=== PATIENT | female | born 1990 | race African-American/Black ===

== ENCOUNTER 2018-12-31 14:19 | Outpatient (CLI) | payer OTHER ==
[2018-12-31 14:44] VITALS: BP 100/50
--- NOTE | 2018-12-31 15:44 | PROCEDURE REPORT ---
- HPI Diagnosis/Indication for NST: Other (Possible rupture of membranes) Vital Signs Temperature 36.6 C 12/31/18 14:37 Heart Rate 78 12/31/18 14:37 Respiratory Rate 16 12/31/18 14:37 Blood Pressure 100/50 L 12/31/18 14:37 Temperature 36.6 C 12/31/18 14:37 Heart Rate 78 12/31/18 14:37 Respiratory Rate 16 12/31/18 14:37 Blood Pressure 100/50 L 12/31/18 14:37 O2 Saturation - Results and Plan Findings/Impression: No contractions are noted on the monitor strip. There is a category 1 strip noted. There is good reactivity. Impression: Intrauterine at 39 weeks 2 days gestation Plan: The patient will be discharged to home. 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
--- NOTE | 2018-12-31 15:48 | PROVIDER PROGRESS NOTE ---
- HPI Chief Complaint: Leakage of vaginal fluid Current : Vital Signs Temperature 36.6 C 12/31/18 14:37 Heart Rate 78 12/31/18 14:37 Respiratory Rate 16 12/31/18 14:37 Blood Pressure 100/50 L 12/31/18 14:37 Temperature 36.6 C 12/31/18 14:37 Heart Rate 78 12/31/18 14:37 Respiratory Rate 16 12/31/18 14:37 Blood Pressure 100/50 L 12/31/18 14:37 O2 Saturation The patient is a well-developed, well-nourished, 28-year-old female who is 2 para 1-0-0-1 with EDC of 01/05/2019 making her approximately 39 weeks and 2 days gestation.She is a patient at the [facility] and [place]. She came to our department after their hospital was placed on divert. She thought she might have experienced some leakage of fluid. She does not know what it looked like. She does not remember any colors. She denies any contractions. She denies any vaginal bleeding. She did notes good movement.She further relates that there is been no problems in her thus far.She is GBS positive. - Exam Lungs: Lungs were clear to auscultation bilaterally. Heart: Heart had a regular rate and rhythm without murmur, S3-S4 gallop rhythms, clicks or rubs. Abdomen: The abdomen is soft, pliable and nontender. The uterus is soft and nontender. Good movement is appreciated. No contractions are appreciated. Uterus is gravid. Pelvic: The cervix has an external loss is open to 3 cm it is possibly 50% effaced the inner office however is open less than a centimeter. I could not push through to the head. The fetus is cephalic and at a -3 station. It sits very high but is engaged. No fluid was noted in the vagina on Valsalva maneuver. No vaginal bleeding is appreciated. The vaginal mucosa is pink and moist. There was a large amount of mucus in the vaginal vault. Fern test was negative for ferning. Nitrazine test was negative. - Procedures OB Procedure Performed: NST (Reactive NSTNo contractions noted) Diagnosis/Indication for NST: Other (Possible rupture of membranes) NST Procedure: No decelerations are noted. There is good reactivity. Service Date of procedure: 12/31/18 Findings: Reactive NST - Plan Plan: Impression: Intrauterine at 39 weeks 2 days gestation, Intact membranes Plan: The patient is going to be allowed to be discharged home.She will follow- up with her regular OB provider at her visit of next week. If she experiences any other signs of labor she will return to an OB department for evaluation.
== END 2018-12-31 15:38 | disposition home or self-care (01) ==
LOC: WFO 14:19 → FBP 14:21 → WFO 15:38
PROVIDERS: ATTEND Obstetrics & Gynecology
DX: Z34.83 Encounter for supervision of other normal pregnancy, third trimester (principal)
CPT/HCPCS: 99213

== ENCOUNTER 2019-11-02 18:46 | Emergency (ER) | payer OTHER ==
--- NOTE | 2019-11-02 20:34 | ED Physician Documentation ---
PD HPI PED ILLNESS - Stated complaint Stated Complaint: CP, FLU LIKE SX - Chief complaint Chief Complaint: General - History obtained from History obtained from: Patient (Pt presents with several days of feeling fatigued, achy, headache, chest discomfort--soreness in the sternum and between the shoulder blades. She feels worn out. Has nasal congestion. Feels chilled but no fever. No cough or dyspnea, no gi/gu sx. Tolerating po well. Drinking a lot of water but still feeling thirsty. [place]id [place] and results today were negative. No known sick contacts. Taking theraflu occasionally without relief. No other meds. Is breast feeding.) Review of Systems Constitutional: reports: Chills, Myalgias, Fatigue Nose: reports: Rhinorrhea / runny nose, Congestion. denies: Sinus pressure / pain Throat: reports: Reviewed and negative Cardiac: reports: Chest pain / pressure. denies: Palpitations, Pedal edema, Calf pain Respiratory: reports: Hemoptysis, Wheezing. denies: Dyspnea, Cough GI: denies: Abdominal Pain, Abdominal Swelling, Nausea, Vomiting, Constipation, Diarrhea, Hematemesis, Bloody / black stool : reports: Reviewed and negative Skin: reports: Reviewed and negative Musculoskeletal: reports: Neck pain, Back pain, Extremity pain. denies: Joint pain, Extremity swelling, Joint swelling, Pain with weight bearing Neurologic: reports: Generalized weakness, Headache. denies: Focal weakness, Numbness, Difficulty speaking, Near syncope, Syncope, Seizure, Confused, Altered mental status, Unresponsive, Head injury, LOC Endocrine: reports: Polydypsia. denies: Polyuria, Polyphagia PD PAST MEDICAL HISTORY - Past Medical History Past Medical History: Yes GI: Other Other Past Medical History: IBS - Past Surgical History Past Surgical History: No - Allergies Allergies/Adverse Reactions: Allergies Allergy/AdvReac Type Severity Reaction Status Date / Time No Known Drug Allergies Allergy Verified 11/02/19 18:57 - Social History Does the pt smoke?: No Smoking Status: Never smoker Does the pt drink ETOH?: No Does the pt have substance abuse?: No - Immunizations Immunizations are current?: Yes - POLST Patient has POLST: No PD ED PE NORMAL - Vitals Vital signs reviewed: Yes - General General: Alert and oriented X 3, No acute distress, Well developed/nourished - HEENT HEENT: Atraumatic, PERRL, EOMI, Ears normal, Moist mucous membranes, Pharynx benign - Neck Neck: Supple, no meningeal sign, No bony TTP, No JVD - Cardiac Cardiac: RRR, No murmur, No gallop, No rub, Other (sternal and anterior chest wall ttp) - Respiratory Respiratory: No respiratory distress, Clear bilaterally - Abdomen Abdomen: Normal bowel sounds, Soft, Non tender, Non distended - Derm Derm: Normal color, Warm and dry, No rash - Extremities Extremities: No deformity, No tenderness to palpate, Normal ROM s pain, No edema, No calf tenderness / cord - Neuro Neuro: Alert and oriented X 3 Eye Opening: Spontaneous Motor: Obeys Commands Verbal: Oriented GCS Score: 15 - Psych Psych: Normal mood, Normal affect Results - Vitals Vitals: Vital Signs - 24 hr 11/02/19 11/02/19 11/02/19 18:57 19:21 20:32 Temperature 36.8 C Heart Rate 64 66 68 Respiratory 16 18 15 Rate Blood Pressure 105/84 H 123/74 118/66 O2 Saturation 98 98 98 11/02/19 21:09 Temperature Heart Rate 67 Respiratory 16 Rate Blood Pressure 120/73 O2 Saturation 99 Oxygen O2 Source Room air - Labs Labs: Laboratory Tests 11/02/19 11/02/19 11/02/19 20:42 20:42 20:42 WBC 6.6 RBC 4.54 Hgb 12.8 Hct 39.6 MCV 87.2 MCH 28.2 MCHC 32.3 RDW 13.6 Plt Count 246 MPV 9.9 Neut # (Auto) 3.4 Lymph # (Auto) 2.6 Yates # (Auto) 0.5 Eos # (Auto) 0.1 Baso # (Auto) 0.0 Absolute Nucleated RBC 0.00 Nucleated RBC % 0.0 Sodium 140 Potassium 3.5 Chloride 107 Carbon Dioxide 26 Anion Gap 7.0 BUN 23 H Creatinine 0.9 Estimated GFR (MDRD) 89 Glucose 88 Calcium 8.8 Troponin I High Sens < 2.3 L Urine Color Urine Clarity Urine pH Ur Specific [place] Urine Protein Urine Glucose (UA) Urine Ketones Urine Occult Blood Urine Nitrite Urine Bilirubin Urine Urobilinogen Ur Leukocyte Esterase Ur Microscopic Review Urine Culture Comments Urine HCG, Qual 11/02/19 20:47 WBC RBC Hgb Hct MCV MCH MCHC RDW Plt Count MPV Neut # (Auto) Lymph # (Auto) Yates # (Auto) Eos # (Auto) Baso # (Auto) Absolute Nucleated RBC Nucleated RBC % Sodium Potassium Chloride Carbon Dioxide Anion Gap BUN Creatinine Estimated GFR (MDRD) Glucose Calcium Troponin I High Sens Urine Color YELLOW Urine Clarity CLEAR Urine pH 6.5 Ur Specific [place] 1.015 Urine Protein NEGATIVE Urine Glucose (UA) NEGATIVE Urine Ketones NEGATIVE Urine Occult Blood NEGATIVE Urine Nitrite NEGATIVE Urine Bilirubin NEGATIVE Urine Urobilinogen 0.2 (NORMAL) Ur Leukocyte Esterase NEGATIVE Ur Microscopic Review NOT INDICATED Urine Culture Comments NOT INDICATED Urine HCG, Qual NEGATIVE PD MEDICAL DECISION MAKING - ED course Complexity details: reviewed results, re-evaluated patient, considered differential, d/w patient ED course: Patient presented with a number of non-specific flu like sx including fatigue, myalgias, chest wall pain. She has been afebrile. [place] [facility] and [place]. We obtained labs which were reassuring including a troponin given chest discomfort though low suspicion for ACS. Her EKG was NSR, no st/t changes. Chest xray is normal. Vital signs normal. I advised pt of reassuring workup and suspicion for another non-Covid/flu viral illness, of which there are multiple. Advised to continue supportive measures at home and follow up in the ED if symptoms worsen. If no improvement after 7-10 days, follow up with primary doctor for additional workup. Departure - Departure Disposition: 01 Home, Self Care Clinical Impression: Influenza-like illness Condition: Good Comments: Please continue supportive measures such as tylenol and ibuprofen and ensure plenty of oral fluids. Most viral syndromes resolve in 7-10 days. If you have symptoms beyond this period of time or you worsen at anytime, return to the ER for re-evaluation or follow up with your primary doctor. Your labs today were reassuring with a normal CBC (blood count), kidney function, electrolytes, and troponin. Your chest xray and EKG are normal.
[2019-11-02 20:48] LABS: BASOPHILS % (AUTO) 0.5 %; EOSINOPHILS # (AUTO) 0.1 10^3/uL (0.0-0.7); EOSINOPHILS % (AUTO) 1.8 %; HGB - HEMOGLOBIN 12.8 g/dL (12.0-16.0); LYMPHOCYTES # (AUTO) 2.6 10^3/uL (1.5-3.5); LYMPHOCYTES % (AUTO) 38.8 %; MEAN CORPUSCULAR HEMOGLOBIN 28.2 pg (27.0-31.0); MEAN CORPUSCULAR HGB CONC 32.3 g/dL (32.0-36.0); MEAN CORPUSCULAR VOLUME 87.2 fL (81.0-99.0); MEAN PLATELET VOLUME 9.9 fL (7.9-10.8); MONOCYTES # (AUTO) 0.5 10^3/uL (0.0-1.0); MONOCYTES % (AUTO) 7.7 %; NEUTROPHILS # (AUTO) 3.4 10^3/uL (1.5-6.6); PLT - PLATELET COUNT 246 10^3/uL (130-450); RED BLOOD COUNT 4.54 10^6/uL (4.20-5.40); RED CELL DISTRIBUTION WIDTH 13.6 % (12.0-15.0); WHITE BLOOD COUNT 6.6 x10^3/uL (4.8-10.8)
[2019-11-02 21:02] LABS: CALCIUM 8.8 mg/dL (8.5-10.3); CREATININE 0.9 mg/dL (0.4-1.0)
[2019-11-02 21:08] LABS: BILIRUBIN,URINE NEGATIVE (NEGATIVE); GLUCOSE, URINE (UA) NEGATIVE (NEGATIVE); KETONES,URINE (UA) NEGATIVE (NEGATIVE); LEUKOCYTE ESTERASE, URINE NEGATIVE (NEGATIVE); NITRITE,URINE NEGATIVE (NEGATIVE); OCCULT BLOOD,URINE NEGATIVE (NEGATIVE); PH,URINE 6.5 PH (5.0-7.5); PROTEIN,URINE NEGATIVE (NEGATIVE); UROBILINOGEN,URINE 0.2 (NORMAL) E.U./dL (NORMAL)
[2019-11-02 21:10] VITALS: BP 120/73
[2019-11-02 21:10] LABS: CLARITY,URINE CLEAR (CLEAR); HCG UR QUAL NEGATIVE
--- NOTE | 2019-11-02 21:11 | XRAY Report ---
Reason: cough Procedure Date: 11/02/2019 Accession Number: [id number] / [id number] Procedure: XR - Chest 2 View X-Ray CPT Code: 91302 Final Report FULL RESULT: EXAM: CHEST RADIOGRAPHY EXAM DATE: 11/02/2019 08:54 PM. CLINICAL HISTORY: Cough. Chest pain for 2 weeks. Worsening over the last 1 week. Fatigue, headache, chills, night sweats. COMPARISON: None. TECHNIQUE: 2 views. FINDINGS: Lungs/Pleura: No focal opacities evident. No pleural effusion. No pneumothorax. Normal volumes. Mediastinum: Heart and mediastinal contours are unremarkable. Other: None. IMPRESSION: Normal 2-view chest radiography. RADIA
== END 2019-11-02 21:39 | disposition home or self-care (01) ==
LOC: ED 18:46
DX: J11.1 Influenza due to unidentified influenza virus with other respiratory manifestations (principal)
CPT/HCPCS: 36415; 71046; 80048; 81001; 81003; 81025; 84484; 85025; 87086; 93005; 99283; 99284

== ENCOUNTER 2020-02-23 10:09 | Emergency (ER) | payer OTHER ==
[2020-02-23] MEDS ORDERED: CHERRY SYRUP 10 ML UDC PO ONE (10:55)
[2020-02-23] MEDS ORDERED: KETOROLAC 60 MG/2 ML VIAL IM STA (10:55)
[2020-02-23] MEDS ORDERED: DEXAMETHASONE 10 MG/ML VIAL PO STA (10:55)
[2020-02-23] MEDS ORDERED: SODIUM CHLORIDE 0.9% 1,000 ML IV STA (10:56)
[2020-02-23] MEDS ORDERED: cefTRIAXone 1 GM in SODIUM CHLORIDE 0.9% MINIBAG 100 ML IV STA (10:56)
[2020-02-23] MEDS ORDERED: KETOROLAC 30 MG/ML VIAL IVP STA (10:57)
[2020-02-23] MEDS ORDERED: cefTRIAXone 1 GM VIAL ONE (11:08)
--- NOTE | 2020-02-23 11:29 | ED Physician Documentation ---
PD HPI CHEST PAIN - Stated complaint Stated Complaint: CHEST/SHOULDER PX - Chief complaint Chief Complaint: Cardiac - History obtained from History obtained from: Patient - History of Present Illness Timing - onset: How many weeks ago (1) Timing - onset during: Rest Timing - duration: Weeks (1) Timing - details: Gradual onset, Still present, Still present in ED Quality: Pressure, Aching Location: Substernal Radiation: Back Improved by: Rest Worsened by: Movement, Palpation Associated symptoms: Shortness of air, Cough Similar symptoms before: Has not had sx before Recently seen: Not recently seen - Additional information Additional information: Previously well 29-year-old female is developed some pain in her anterior chest with chest wall tenderness about 1 week ago. She also noticed she has had some phlegm production and a slight cough she has not had fever with this and she has not felt ill. She does have some shortness of breath associated with this. She has had a COVID test on 2 days ago. She has been wearing a mask frequently. Review of Systems Constitutional: denies: Fever Eyes: denies: Decreased vision Ears: denies: Ear pain Nose: reports: Congestion Throat: denies: Sore throat Cardiac: reports: Chest pain / pressure. denies: Palpitations, Pedal edema, Calf pain Respiratory: reports: Dyspnea, Cough GI: denies: Abdominal Pain, Nausea, Vomiting : denies: Dysuria PD PAST MEDICAL HISTORY - Past Medical History GI: Other Other Past Medical History: Interstitial cystits. - Past Surgical History Past Surgical History: No - Present Medications Home Medications: Ambulatory Orders Medication Instructions Recorded Confirmed RX: Azithromycin [Zithromax] 250 mg PO DAILY #6 tablet 02/23/20 RX: Meloxicam 15 mg PO DAILY PRN #20 tablet 02/23/20 RX: Multivitamin 1 each PO 02/23/20 Sertraline [Zoloft] 25 mg PO DAILY 02/23/20 02/23/20 - Allergies Allergies/Adverse Reactions: Allergies Allergy/AdvReac Type Severity Reaction Status Date / Time No Known Drug Allergies Allergy Verified 02/23/20 10:20 - Social History Does the pt smoke?: No Smoking Status: Never smoker Does the pt drink ETOH?: No Does the pt have substance abuse?: No - Immunizations Immunizations are current?: Yes - POLST Patient has POLST: No PD ED PE NORMAL - Vitals Vital signs reviewed: Yes (Diastolic hypertension mild) - General General: Alert and oriented X 3, No acute distress, Well developed/nourished - HEENT HEENT: Atraumatic, PERRL, EOMI, Other (There is inflammation to the left TM with distortion of landmarks the right is clear the mucous membranes are dry) - Neck Neck: Supple, no meningeal sign, No bony TTP - Cardiac Cardiac: RRR, No murmur - Respiratory Respiratory: No respiratory distress, Clear bilaterally, Other (There is chest wall tenderness to the costosternal joint bilaterally that reproduces the symptoms the patient is experiencing.) - Abdomen Abdomen: Soft, Non tender - Back Back: No CVA TTP, No spinal TTP - Derm Derm: Normal color, Warm and dry, No rash - Extremities Extremities: No deformity, No edema, No calf tenderness / cord - Neuro Neuro: Alert and oriented X 3, 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, No motor deficit, Normal speech Eye Opening: Spontaneous Motor: Obeys Commands Verbal: Oriented GCS Score: 15 - Psych Psych: Normal mood, Normal affect Results - Vitals Vitals: Vital Signs - 24 hr 02/23/20 02/23/20 10:13 12:05 Temperature 36.8 C Heart Rate 75 70 Respiratory 16 17 Rate Blood Pressure 107/81 H 115/68 O2 Saturation 97 99 Oxygen O2 Source Room air - EKG (time done) 1020 Rate: Rate (enter#) (70) Rhythm: NSR Ischemia: Normal ST segments Compare to prior EKG: Unchanged from prior EKG ([facility] 11-02-2019 no changes) Computer interpretation: Agree with computer - Rads (name of study) chest Radiology: Prelim report reviewed (Impression: No acute airspace opacity identified.), EMP read indepedently, See rad report PD MEDICAL DECISION MAKING - ED course Complexity details: reviewed old records, reviewed results, re-evaluated patient, considered differential, d/w patient ED course: 29-year-old female with costochondritis as a reason for chest pain also has left otitis on exam. She is administered dexamethasone 10 mg intravenous, Toradol 30 mg intravenous and Rocephin 1 g intravenous as well as a liter of saline. Departure - Departure Disposition: 01 Home, Self Care Clinical Impression: Costochondritis, acute Otitis media Qualifiers: Otitis media type: suppurative Chronicity: acute Laterality: left Recurrence: non-recurrent Spontaneous tympanic membrane rupture: without spontaneous rupture Qualified Code(s): H66.002 - Acute suppurative otitis media without spontaneous rupture of ear drum, left ear Condition: Stable Instructions: ED Chest Pain Costochondritis, ED Otitis Media Acute Adult Follow-Up: [facility] [Provider Group] Prescriptions: RX: Meloxicam 15 mg PO DAILY PRN #20 tablet PRN Reason: Pain RX: Azithromycin [Zithromax] 250 mg PO DAILY #6 tablet
--- NOTE | 2020-02-23 11:56 | XRAY Report ---
PROCEDURE: Chest 1 View X-Ray INDICATIONS: chest pain TECHNIQUE: One view of the chest was acquired. COMPARISON: CXR 11/02/2019. FINDINGS: Surgical changes and devices: None. Lungs and pleura: No pleural effusions or pneumothorax. Lungs are clear. Mediastinum: Mediastinal contours appear normal. Heart size is normal. Bones and chest wall: No suspicious bony lesions. Overlying soft tissues appear unremarkable. IMPRESSION: No acute airspace opacity identified. Reviewed by: Estuardo Norton MD on 02/23/2020 11:55 AM PDT Approved by: Estuardo Norton MD on 02/23/2020 11:55 AM PDT Station ID: [id number]
[2020-02-23 12:06] VITALS: BP 115/68
== END 2020-02-23 12:22 | disposition home or self-care (01) ==
LOC: ED 10:09
DX: M94.0 Chondrocostal junction syndrome [Tietze] (principal); H66.002 Acute suppurative otitis media without spontaneous rupture of ear drum, left ear
CPT/HCPCS: 71045; 93005; 96361; 96365; 96375; 99283; 99284; A9270

== ENCOUNTER 2020-12-16 08:00 | Outpatient (CLI) | payer OTHER | END 2020-12-16 23:59 | disposition home or self-care (01) | LOC: LAB.N 08:00 | PROVIDERS: ATTEND Family Medicine | DX: R07.0 Pain in throat (principal); R05 Cough; Z20.822 Contact with and (suspected) exposure to COVID-19 | CPT/HCPCS: 87070; 87077 ==

== ENCOUNTER 2020-12-16 16:52 | Outpatient (CLI) | payer OTHER ==
--- NOTE | 2020-12-17 08:31 | XRAY Report ---
PROCEDURE: Chest 2 View X-Ray INDICATIONS: SORE THROAT, PRODUCTIVE COUGH TECHNIQUE: 2 view(s) of the chest. COMPARISON: 02/23/2020 and 11/02/2019. FINDINGS: Surgical changes and devices: None. Lungs and pleura: No pleural effusions or pneumothorax. Lungs are clear. Mediastinum: Mediastinal contours are normal. Heart size is normal. Bones and chest wall: No suspicious bony abnormalities. Soft tissues appear unremarkable. IMPRESSION: No acute cardiopulmonary pathology. Reviewed by: Goyo Diaz MD on 12/17/2020 8:29 AM PDT Approved by: Goyo Diaz MD on 12/17/2020 8:29 AM PDT Station ID: [id number]
== END 2020-12-16 23:59 | disposition home or self-care (01) ==
LOC: DI.N 16:52
PROVIDERS: ATTEND Family Medicine
DX: J02.9 Acute pharyngitis, unspecified (principal); R05 Cough